=== PATIENT | female | born 1980 | race Caucasian/White ===

== ENCOUNTER 2019-09-07 16:49 | Observation (INO) ==
[2019-09-07 17:48] LABS: BASO# 0.04 X1000 (0.0-0.2); BASO% 0.3 % (0.0-0.8); EOS# 0.25 X1000 (0.0-0.7); EOS% 2.1 % (0.0-10.0); HEMATOCRIT 44.9 % (37.0-47.0); HEMOGLOBIN 15.3 g/dL (12.0-16.0); IMM GRAN# 0.03 X1000 (0.0-0.04); IMM GRAN% 0.3 % (0.0-0.5); LYMPH# 2.92 X1000 (1.2-3.4); LYMPH% 24.7 % (20.5-51.1); MCH 30.9 PG (27-31); MCHC 34.1 g/dL (33-37); MCV 90.7 FL (81-99); MONO# 0.75 X1000 (0.11-0.59); MONO% 6.4 % (1.7-9.3); MPV 9.5 FL (7.4-10.4); NEUT# 7.81 X1000 (1.4-6.5); NEUT% 66.2 % (42.2-75.2); PLT 279 X1000 (130-400); RBC 4.95 XMIL (4.2-5.4); RDW 12.1 % (11.5-14.5)
[2019-09-07 17:53] LABS: INR 0.92; PROTIME 12.5 Seconds (11.0-16.0)
[2019-09-07 17:54] LABS: PTT 30.8 Seconds (22.3-41.8)
[2019-09-07 18:14] LABS: AGAP 19; ALB/GLOB RATIO 1.5; ALBUMIN 4.4 g/dL (3.5-5.0); ALKALINE PHOSPHATASE 78 U/L (32-104); BUN 12 mg/dL (8-22); CALCIUM 9.5 mg/dL (8.8-10.2); CHLORIDE 99 mmol/L (98-107); CK PROFILE 110 U/L (24-173); COSMO 273; CREATININE 0.9 mg/dL (0.5-0.9); ESTIMATED GFR > 60; GLUCOSE 122 mg/dL (70-104); GOT 19 U/L (10-30); GPT 11 U/L (10-36); POTASSIUM 4.1 mmol/L (3.5-5.1); SODIUM 136 mmol/L (136-145); TCO2 18 mmol/L (25-35); TOTAL BILIRUBIN 0.19 mg/dL (0.20-1.00); TOTAL PROTEIN 7.4 g/dL (6.3-8.3)
--- NOTE | 2019-09-07 18:25 | Diag Imaging Result Doc PS360 ---
EXAM: CHEST-1 VIEW INDICATION: possible sepsis TECHNIQUE: One view COMPARISON: 06/29/2016 FINDINGS: The lungs are grossly clear. There is no discrete pleural fluid collection or pneumothorax. The cardiomediastinal silhouette and central vasculature are grossly unremarkable. IMPRESSION: No evidence of acute pathology by plain radiograph. Electronically signed by Efrain Epstein 09/07/2019 6:22 PM
[2019-09-07] MEDS ORDERED: NS 1,000 ML IV ONE (18:48)
[2019-09-07] MEDS ORDERED: ZOFRAN IV ONE (18:48)
[2019-09-07] MEDS ORDERED: DILAUDID IV ONE (18:48)
--- NOTE | 2019-09-07 20:35 | Diag Imaging Result Doc PS360 ---
EXAM: CT ABD/PELVIS W/IV CONT ONLY INDICATION: epigastric/lower abd pain, n/v TECHNIQUE: This exam was performed using automated exposure control, adjustment of mA or kV according to patient size, and/or use of iterative reconstruction technique. COMPARISON: 04/24/2019 FINDINGS: The gallbladder, liver, spleen, pancreas, adrenal glands, kidneys, and urinary bladder are essentially unremarkable. The reproductive tract is grossly unremarkable as imaged. There are surgical kathleen associated with the stomach indicating prior bariatric surgery. There are a few uncomplicated colonic diverticula. The colon is unremarkable, otherwise. There are several loops of small bowel in the lower mid abdomen exhibiting wall thickening indicating nonspecific enteritis. There is no significant bowel distention to indicate high-grade obstruction. Adjacent to the thickened loops of small bowel, there is surgical mesh at the ventral abdominal wall. Just superior to this, there is a ventral wall hernia containing mesenteric fat. This was also seen on the previous study but now there is fluid within the hernial sac and mild opacification of the herniated fat suggesting venous congestion. There is no herniated small bowel. There is no free abdominal gas. There is no evidence of acute osseous abnormality. IMPRESSION: 1.Several loops of small bowel exhibiting wall thickening in the lower mid abdomen indicating nonspecific enteritis. 2.Small ventral abdominal wall hernia containing mesenteric fat like the previous study. However, there is now fluid within the hernial sac and the herniated mesenteric fat is somewhat edematous suggesting venous congestion. Note that there is no small bowel in the hernial sac. Electronically signed by Efrain Epstein 09/07/2019 8:32 PM
--- NOTE | 2019-09-07 21:26 | PROVIDER DOCUMENTATION ---
This chart was entered by Eve Marino Scribe, acting as scribe for Jimmy Sheets CRNP. HPI-Abdominal Pain/GI Problem - General Chief Complaint: Abdominal Pain Stated Complaint: STOMACH PAIN Time Seen by Provider: 09/07/19 18:28 Source: patient Allergies/Adverse Reactions: Patient Allergies Allergy/AdvReac Type Severity Reaction Status Date / Time Penicillins Allergy Intermediate HIVES Verified 07/22/16 14:38 Sulfa (Sulfonamide Allergy RASH Verified 07/22/16 14:38 Antibiotics) Home Medications: Home Medication List Medication Instructions Recorded Confirmed Last Taken Type Citalopram [Celexa] 20 mg PO DAILY 04/24/19 04/24/19 Unknown History Hydrocodone/APAP 5 mg/325 mg 1 ea PO Q6H PRN PRN #10 tab 04/24/19 Unknown Rx [[place]-5] Omeprazole 1 tab PO DAILY 04/24/19 04/24/19 Unknown History Promethazine [Phenergan] 25 mg PO Q6H PRN PRN #10 tab 04/24/19 Unknown Rx - History of Present Illness-ABD Nature of Presenting Problems: Pt is a 39 yof who presents to the ED with a cc upper and lower abd pain. states that the pain began 2 weeks ago but worsened today. reports n/v that began today. reports hx of emergency hernia repair and states that the pain feels similar. pt is tearful in appearance. does not present to the ed with any other complaints. Abdominal Pain Onset Location: reports: other (upper and lower abd) Quality of Pain: reports: aching Severity in ED: reports: moderate Onset/Duration: reports: just prior to arrival (N/V began today), 2 days ago (pain worsened 2 days ago), other (2 weeks ago) Timing: reports: still present Activities at Onset: reports: none Exposure to sick contacts?: No Modifying Factors: improves with: nothing Associated Symptoms: reports: nausea, vomiting Last BM: unsure Dark Stools Present?: reports: none noticed Rectal Bleeding: reports: none Rectal Pain: reports: none Emesis Description: reports: none Bruising or Bleeding Gums?: No Similar Symptoms Previously?: Yes Recently seen or treated by another doctor?: No Review of Systems - Adult - REVIEW OF SYSTEMS - ADULT Constitutional: reports: no symptoms reported Eyes: reports: no symptoms reported Ears, Nose, Mouth & Throat: reports: no symptoms reported Cardiovascular: reports: no symptoms reported Respiratory: reports: no symptoms reported Gastrointestinal: reports: see HPI, abdominal pain (upper and lower- 2 weeks, worsen today), nausea (today), vomiting (today), other (reports hx of hernia repair.) Genitourinary: reports: no symptoms reported Musculoskeletal: reports: no symptoms reported Integumentary: reports: no symptoms reported Neurological: reports: no symptoms reported Psychiatric: reports: no symptoms reported Endocrine: reports: no symptoms reported Hematologic/Lymphatic: reports: no symptoms reported Allergic/Immunologic: reports: no symptoms reported All Other Systems: Reviewed and Negative Past History - Adult - PAST MEDICAL HISTORY-ADULT Review of Records: reports: Old Records Reviewed, Nursing Assessment Review, Medications Reviewed, Social history reviewed & non-contributory. Major Childhood Illnesses: reports: denies history Cardiovascular: reports: denies history Respiratory: reports: sleep apnea Gastrointestinal: reports: denies history Obstetrical/Gynecological: reports: denies history Genitourinary: reports: denies history Musculoskeletal: reports: denies history Neurological: reports: denies history Psychiatric: reports: anxiety Endocrine/Immune: reports: Diabetes Other Conditions: reports: denies history - PRIOR SURGERIES/PROCEDURES Surgical/Procedure History: reports: appendectomy, tonsillectomy, hernia repair, gastric bypass (gastic sleeve ) - IMMUNIZATION STATUS Childhood Immunizations: See Nurse Assessment Flu Vaccine: See Nurse Assessment - FAMILY HISTORY Family History: reviewed, not pertinent - SOCIAL HISTORY Smoking: non-smoker Substance Use: denies Living Situation: family Physical Exam-General - PHYSICAL EXAM-ADULT Initial Vital Signs Reviewed: Yes - CONSTITUTIONAL General Appearance: alert, moderate distress - EYES Eyes: pink conjunctivae - HEAD, EARS, NOSE, MOUTH & THROAT HENMT: normocephalic/atraumatic, moist mucous membranes - NECK Neck: non-tender, full range of motion, normal inspection - RESPIRATORY Respiratory: chest non-tender, lungs clear, normal breath sounds. negative: crackles - CARDIOVASCULAR Cardiovascular: normal peripheral pulses, regular rate, rhythm - GASTROINTESTINAL (ABDOMEN) Abdominal Exam: soft, tenderness (diffused) - MUSCULOSKELETAL Extremity: normal range of motion, normal inspection. negative: deformity, swelling - SKIN Integumentary: normal color, normal turgor, warm/dry. negative: ecchymosis, embolic lesions - NEUROLOGIC Neurologic: grossly normal - PSYCHIATRIC Psych/Mental Status: normal mood/affect, normal thought content, normal thought process, oriented x 3, tearful Progress - PLAN OF CARE/RESULTS Progress/Plan/Lab Results: Vital Signs - 8 hr 09/07/19 17:14 09/07/19 17:51 Temperature 97.6 F Pulse Rate 99 H 104 H Respiratory Rate 22 20 Blood Pressure 141/91 228/144 O2 Sat by Pulse Oximetry 97 100 Bedside Urine ED: Urine Bedside Start: 09/07/19 17:27 Freq: NOW Status: Active Protocol: Activity Type Activity Date Activity User E-Sign Co-Sign Detail Recorded Client Recorded Date Recorded By Document 09/07/19 17:53 [id number] 09/07/19 17:53 [id number] 09/07/19 17:53 Point of Care [Bedside Point of Care] -Lot # [id number] - Results Negative -Control Line Visible? Yes Laboratory Results - last 24 hr 09/07/19 09/07/19 09/07/19 17:29 17:29 17:29 WBC 11.80 H RBC 4.95 Hgb 15.3 Hct 44.9 MCV 90.7 MCH 30.9 MCHC 34.1 RDW Std Deviation 12.1 Plt Count 279 MPV 9.5 Immature Gran % (Auto) 0.3 Neut % (Auto) 66.2 Lymph % (Auto) 24.7 [place] % (Auto) 6.4 Eos % (Auto) 2.1 Baso % (Auto) 0.3 Immature Gran # (Auto) 0.03 Neut # (Auto) 7.81 H Lymph # (Auto) 2.92 [place] # (Auto) 0.75 H Eos # (Auto) 0.25 Baso # (Auto) 0.04 PT INR PTT (Actin FS) Sodium 136 Potassium 4.1 Chloride 99 Carbon Dioxide 18 L Anion Gap 19 BUN 12 Creatinine 0.9 Estimated GFR/1.73 m2 > 60 BUN/Creatinine Ratio 13 Glucose 122 H Calculated Osmolality 273 Calcium 9.5 Total Bilirubin 0.19 L AST 19 ALT 11 Alkaline Phosphatase 78 Creatine Kinase 110 Troponin T High Sens Total Protein 7.4 Albumin 4.4 Globulin 3.0 Albumin/Globulin Ratio 1.5 Plasma Lactate 3.8 H 09/07/19 09/07/19 17:29 17:29 WBC RBC Hgb Hct MCV MCH MCHC RDW Std Deviation Plt Count MPV Immature Gran % (Auto) Neut % (Auto) Lymph % (Auto) [place] % (Auto) Eos % (Auto) Baso % (Auto) Immature Gran # (Auto) Neut # (Auto) Lymph # (Auto) [place] # (Auto) Eos # (Auto) Baso # (Auto) PT 12.5 INR 0.92 PTT (Actin FS) 30.8 Sodium Potassium Chloride Carbon Dioxide Anion Gap BUN Creatinine Estimated GFR/1.73 m2 BUN/Creatinine Ratio Glucose Calculated Osmolality Calcium Total Bilirubin AST ALT Alkaline Phosphatase Creatine Kinase Troponin T High Sens < 6 Total Protein Albumin Globulin Albumin/Globulin Ratio Plasma Lactate Orders Category Date Time Status Cardiac Monitoring DIRECTED Care 09/07/19 17:21 Active IV Insertion ORDERED Care 09/07/19 17:21 Active Notify MD of + Sepsis Screen NOW Care 09/07/19 17:21 Active [ED: Urine Bedside] NOW Care 09/07/19 17:27 Active CHEST-1 VIEW [RAD] Stat Exams 09/07/19 17:[address] ABD/PELVIS W/IV CONT ONLY [CT] Stat Exams 09/07/19 18:47 Ordered BLOOD CULTURE [BLDCUL] Stat Lab 09/07/19 17:21 Uncollected CBC WITH DIFF [HEME] Stat Lab 09/07/19 17:29 Completed CK PROFILE [SP CHEM] Stat Lab 09/07/19 17:29 Completed COMPREHENSIVE METABOLIC PANEL [CHEM] Stat Lab 09/07/19 17:29 Completed LACTATE, PLASMA [CHEM] Q3H Lab 09/07/19 17:29 Completed LACTATE, PLASMA [CHEM] Q3H Lab 09/07/19 20:30 Uncollected LACTATE, PLASMA [CHEM] Q3H Lab 09/07/19 23:30 Uncollected PROTIME WITH INR [COAG] Stat Lab 09/07/19 17:29 Completed PTT [COAG] Stat Lab 09/07/19 17:29 Completed TROPONIN T HIGH SENSITIVITY Stat Lab 09/07/19 17:29 Completed URINALYSIS W/POSS RFLX CULT [URINALYSIS] Stat Lab 09/07/19 17:21 Uncollected 0.9% Sodium Chloride Inj [Ns] 1,000 ml Med 09/07/19 18:48 Active IV 999 mls/hr Hydromorphone [Dilaudid] Med 09/07/19 18:48 Discontinued 1 mg IV NOW ONE Ondansetron [Zofran] Med 09/07/19 18:48 Discontinued 4 mg IV NOW ONE Oxygen Device Stat Oth 09/07/19 17:21 Active Result Diagrams: 09/07/19 17:29 09/07/19 17:29 - REASSESSMENT Reassessment #1 Time Reassessed: 21:25 Status: improving (Pain improved as compared to prior, still present, Dr. Henson recommends admission. Pt admitted to Dr. Mendez in stable condition and is in agreement with plan to admit.) - XRAY 1 XRAY Study: Chest ([facility] - [address] [facility] [facility], [address], [place] [address] [facility] - [address] [place] [address] Department of Imaging Patient: VERONICA QUIÑONES AADM Date: 09/07/19#: [id number] : 1980ADM Status: PRE ERAcct#: [id number] Age/Sex: 39/FRoom/Bed: Loc: ED Ordering Physician: Dale Alaniz MD Health system Physician: Jan Gonzalez MD Reason for Procedure: possible sepsis Signed EXAM: CHEST-1 VIEW INDICATION: possible sepsis TECHNIQUE: One view COMPARISON: 06/29/2016 FINDINGS: The lungs are grossly clear. There is no discrete pleural fluid collection or pneumothorax. The cardiomediastinal silhouette and central vasculature are grossly unremarkable. IMPRESSION: No evidence of acute pathology by plain radiograph. Electronically signed by Efrain Epstein 09/07/2019 6:22 PM 09/07/191821 Interpreting Physician: Efrain Epstein MD Dictated Date/Time: 09/07/191821 cc: Dale Alaniz MD; Jan Gonzalez MD) - CT/MRI 1 CT Study: Abdomen, Pelvis ([facility] - [address] , [address], [place] [address] [facility] - [address] [place] [address] Department of Imaging Patient: VERONICA QUIÑONES Date: 09/07/19MR#: [id number] : 1980ADM Status[facility] [id number] Age/Sex: 39/FRoom/Bed: Loc: ED Ordering Physician: Jimmy Sheets gonzales Physician: Jan Gonzalez MD Reason for Procedure: epigastric/lower abd pain, n/v Signed EXAM: CT ABD/PELVIS W/IV CONT ONLY INDICATION: epigastric/lower abd pain, n/v TECHNIQUE: This exam was performed using automated exposure control, adjustment of mA or kV according to patient size, and/or use of iterative reconstruction technique. COMPARISON: 04/24/2019 FINDINGS: The gallbladder, liver, spleen, pancreas, adrenal glands, kidneys, and urinary bladder are essentially unremarkable. The reproductive tract is grossly unremarkable as imaged. There are surgical kathleen associated with the stomach indicating prior bariatric surgery. There are a few uncomplicated colonic diverticula. The colon is unremarkable, otherwise. There are several loops of small bowel in the lower mid abdomen exhibiting wall thickening indicating nonspecific enteritis. There is no significant bowel distention to indicate high-grade obstruction. Adjacent to the thickened loops of small bowel, there is surgical mesh at the ventral abdominal wall. Just superior to this, there is a ventral wall hernia containing mesenteric fat. This was also seen on the previous study but now there is fluid within the hernial sac and mild opacification of the herniated fat suggesting venous congestion. There is no herniated small bowel. There is no free abdominal gas. There is no evidence of acute osseous abnormality. IMPRESSION: 1.Several loops of small bowel exhibiting wall thickening in the lower mid abdomen indicating nonspecific enteritis. 2.Small ventral abdominal wall hernia containing mesenteric fat like the previous study. However, there is now fluid within the hernial sac and the herniated mesenteric fat is somewhat edematous suggesting venous congestion. Note that there is no small bowel in the hernial sac. Electronically signed by Efrain Epstein 09/07/2019 8:32 PM 09/07/192031 Interpreting Physician: Efrain Epstein MD Dictated Date/Time: 09/07/192024 cc: Jimmy Sheets; Jan Gonzalez MD) - CONSULTS/PCP/HOSPITALIST Notification #1 *Consult/PCP/Hospitalist*: Dr. Mendez Time Discussed: 21:24 Reason/Comments: admission-enteritis, abd pain, vomiting Consult Disposition: Admit Departure - Departure Date of Disposition Decision: 09/07/19 Time of Disposition Decision: 21:25 DIAGNOSIS: Enteritis Abdominal pain Qualifiers: Abdominal location: unspecified location Qualified Code(s): R10.9 - Unspecified abdominal pain Disposition: ADMITTED INPATIENT 09 Certified Medical Emergency: Emergent Condition: Stable Referrals and Follow-Ups: Jan Gonzalez MD [Primary Care Provider] - - Critical Care Note This patient required my direct & personal management of CC.: No Attestation - Physician/ BETHANY Attestation Patient care was provided by Advanced Practice Provider:: Yes Advanced Practice Provider documentation review:: The Mid-level provider documentation, treatment plan and medical decision making was reviewed by the physician who agrees with all treatment and medical decision making by the P. The physician spent face to face time with patient:: No Advanced Practice Provider documentation review:: Supervising physician onsite and consulted in the evaluation and care of this patient. The physician did not have a face to face encounter with the patient. This chart was documented by the indicated scribe, (Eve Marino Scribe) and accurately reflects the services I performed and decisions made by me, Jimmy Sheets CRNP, as attested by the provider's signature.
[2019-09-07] MEDS ORDERED: ZOFRAN IV PRN (23:07)
[2019-09-07] MEDS: NS 1,000 ML IV SCH (23:07)
[2019-09-07] MEDS: DILAUDID IV PRN (23:49)
[2019-09-08] MEDS: DILAUDID IV PRN ×3 (04:15→21:24)
[2019-09-08 05:15] LABS: URINE SOURCE CLEAN CATCH
[2019-09-08 05:24] LABS: BILIRUBIN URINE NEGATIVE (NEGATIVE); BLOOD URINE NEGATIVE (NEGATIVE); COLOR YELLOW; GLUCOSE URINE NEGATIVE (NEGATIVE); KETONE URINE TRACE mg/dL (NEGATIVE); LEUKOCYTES URINE NEGATIVE (NEGATIVE); NITRITE URINE NEGATIVE (NEGATIVE); PH URINE 6.5; PROTEIN URINE TRACE mg/dL (NEGATIVE); TURBIDITY URINE CLEAR (CLEAR); UROBILINOGEN URINE NORMAL (NORMAL)
[2019-09-08 05:26] LABS: UR EPITHELIAL CELLS <10 /HPF (<10); URINE BACTERIA 1+ /HPF; URINE RBC <10 /HPF (<10); URINE WBC <10 /HPF (<10)
[2019-09-08 05:39] LABS: SP GRAVITY URINE 1.015
--- NOTE | 2019-09-08 06:35 | HISTORY AND PHYSICAL ---
PRIMARY CARE PHYSICIAN: Dr. Gonzalez. CHIEF COMPLAINT: Abdominal pain, nausea, vomiting times several days. HISTORY OF PRESENTING ILLNESS: A 39-year-old female with a history of depression, GERD and IBS, who had presented to emergency department with several days history of having abdominal pain. She described it as a cramping sensation and states that she was nauseated and vomited multiple times. She was evaluated in the emergency department and due to her presenting symptoms it was thought that we will place her for observation for further evaluation and management. At the time of my examination, patient denied any headache, fever, chills, chest pain, shortness of breath, hemoptysis or weight changes, but complained of abdominal pain, not feeling well. PAST MEDICAL HISTORY: Includes depression, GERD, IBS. PAST SURGICAL HISTORY: Gastric sleeve, hernia repair, appendectomy, tonsillectomy. ALLERGIES: Penicillin, sulfa. CURRENT MEDICATIONS: 1. Celexa 20 mg p.o. daily. 2. [place] 5 one p.o. q.6 hours. 3. Omeprazole 40 mg p.o. daily. 4. Phenergan 25 mg p.o. q.6 hours. SOCIAL HISTORY: No history of smoking. Admits to social alcohol use. Denies any illicit drug use. FAMILY HISTORY: No history of coronary disease. REVIEW OF SYSTEMS: Fourteen point review of systems is as in HPI. Other systems negative. PHYSICAL EXAMINATION: GENERAL: Cooperative, friendly female. She is resting comfortably now. VITAL SIGNS: Temperature 97.6 degrees, pulse 99 respiration 22, blood pressure 141/91. HEENT: Atraumatic, normocephalic. Extraocular movements intact. PERRLA. NECK: Supple. CHEST: Clear to auscultation. CARDIOVASCULAR: Regular rate and rhythm. ABDOMEN: Soft, mild tenderness. EXTREMITIES: No edema. NEUROLOGIC: She is awake, alert, oriented x3. : No bladder distention. SKIN: Warm. LABORATORIES AND STUDIES: WBC 11.80, hemoglobin 15.3, hematocrit 44.9, platelets 279,000. Sodium 136, potassium 4.1, chloride 99, CO2 is 18, BUN is 12, creatinine 0.9, glucose 122. Abdominal CT scan shows enteritis. ASSESSMENT: A 39-year-old female with a history of depression, GERD, IBS, who had presented to emergency department with several days history of having abdominal pain, nausea, vomiting. She was evaluated in the emergency department and due to her presenting symptoms it was thought that we will place her for observation for further evaluation and management. ASSESSMENT: 1. Abdominal pain with persistent nausea, vomiting. 2. Depression. 3. Gastroesophageal reflux disease. PLAN: 1. We will admit patient to medical floor. 2. We will continue supportive treatment IV fluids, antiemetics, pain control. 3. We will start her home medications once nausea and vomiting subsides. 4. We will continue to follow, reassess, make further recommendation based on patient's clinical course. cc: Aldair Mendez MD
[2019-09-08 07:17] LABS: BASO# 0.02 X1000 (0.0-0.2); BASO% 0.3 % (0.0-0.8); EOS% 2.6 % (0.0-10.0); HEMATOCRIT 37.8 % (37.0-47.0); HEMOGLOBIN 12.4 g/dL (12.0-16.0); LYMPH# 2.98 X1000 (1.2-3.4); LYMPH% 38.5 % (20.5-51.1); MCH 30.5 PG (27-31); MCHC 32.8 g/dL (33-37); MCV 92.9 FL (81-99); MONO% 7.7 % (1.7-9.3); MPV 9.5 FL (7.4-10.4); NEUT# 3.95 X1000 (1.4-6.5); NEUT% 50.9 % (42.2-75.2); PLT 233 X1000 (130-400); RBC 4.07 XMIL (4.2-5.4); WBC 7.75 X1000 (4.8-10.8)
[2019-09-08] MEDS: NS 1,000 ML IV SCH ×2 (07:53→16:44)
[2019-09-08 08:03] LABS: AGAP 12; BUN 10 mg/dL (8-22); CALCIUM 8.1 mg/dL (8.8-10.2); CHLORIDE 104 mmol/L (98-107); COSMO 280; CREATININE 0.8 mg/dL (0.5-0.9); ESTIMATED GFR > 60; GLUCOSE 89 mg/dL (70-104); POTASSIUM 3.6 mmol/L (3.5-5.1); SODIUM 141 mmol/L (136-145); TCO2 25 mmol/L (25-35)
[2019-09-08] MEDS: NORCO-10 PO PRN (13:18)
--- NOTE | 2019-09-08 15:56 | PROGRESS NOTE ---
DATE: 09/08/2019 SUBJECTIVE: I have seen and examined Ms. Obrien today. Ms. Obrien is a 39-year-old female with multiple laparoscopic surgeries due to ventral hernias, comes in this time because of acute onset of abdominal pain. The patient normally sees Dr. Amor. Ms Obrien has also undergone EGD and colonoscopy recently because of suspicion of Irritable bowel syndrome, was found to have H pylori was treated according to her with doxycycline, metronidazole and Pepto- Bismol. Currently, she refers to be feeling a little better. Abdominal pain has improved some. OBJECTIVE: Vital signs: Blood pressure is 130/53, pulse of 74, respirations 16, temperature is 98.4 degrees. General: Ms. Obrien is a 39-year-old morbidly obese, female. BMI is 34.9. She is in bed no distress. HEENT: Mucosa is pink and moist. Anicteric. Acyanotic. Neck: Supple. Chest: Good air entry bilaterally. There was no crepitations no rhonchi. Cardiovascular: Regular rate and rhythm. GI: Abdomen is soft. It is minimally tender in the umbilical area. There is mild induration supraumbilically, but I was not able to feel the hernia defect because of pain. There is also supra and infraumbilical surgical scar. SURFACE HYDROLOGIST: Patient is awake, alert, and oriented. There is no focal deficit. LABORATORY DATA: Has been reviewed. No major abnormality detected. So far blood cultures have been unremarkable. IMAGING STUDIES: A CT scan of the abdomen shows several loops of small bowel exhibiting bowel wall thickening and indicative of nonspecific enteritis. There is also small ventral hernia with some containing mesenteric fat which seems to be somehow edematous. ASSESSMENT: 1. Abdominal pain presumably due to an incarcerated ventral hernia. The patient seems to be feeling a little better now. However, she remains symptomatic. We are going to get surgery to evaluate her. 2. Nonspecific enteritis. The patient is known to have Irritable bowel syndrome. She denies any diarrhea at this point. We will continue to monitor. 3. Recently treated for Helicobacter pylori. Patient stool will be tested for Helicobacter pylori antigen to document cure after the treatment. 4. Morbid obesity. Body mass index of 34.9. 5. Mild lactic acidosis, resolved with fluid resuscitation. PLAN: In general, I think Ms. Obrien is doing a little better. She is still symptomatic with abdominal pain. A CT scan of the abdomen result has been noted. We will get surgery to evaluate her today and hopefully get her discharged in the next 24 to 48 hours if she remains stable. cc: Boaz Ann MD MTDD
--- NOTE | 2019-09-08 21:03 | CONSULTATION ---
DATE OF CONSULTATION: 09/08/2019 HISTORY OF PRESENT ILLNESS: Ms. Melani Obrien is a 39-year-old, overweight, white female with history of gastric sleeve performed in [place]. She has had a periumbilical midline ventral hernia which has been operated on [address] Delvalle performed the first hernia repair, then mesh was removed, and most recently in June 2017 Dr. Amor did an open repair using a round piece of mesh measuring 6 to 8 cm in diameter. She was hospitalized through the emergency department with an incarcerated midline ventral hernia which appeared to be just above the mesh. It contained omentum and no small bowel. She did have the flu last week. PAST MEDICAL HISTORY: 1. Gastroesophageal reflux disease. 2. Depression. 3. Irritable bowel syndrome. PAST SURGICAL HISTORY: 1. Gastric sleeve. 2. Hernia repair several times. 3. Appendectomy. 4. Tonsillectomy. ALLERGIES: Penicillin and sulfa. CURRENT MEDICATIONS: 1. Celexa. 2. [place]. 3. Omeprazole. 4. Phenergan/ SOCIAL HISTORY: She does not smoke. 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 She does use social alcohol. FAMILY HISTORY: Family history was reviewed with the patient, but was noncontributory. REVIEW OF SYSTEMS: A 14-point review of systems was performed and was essentially negative. PHYSICAL EXAMINATION: General: Ms. Obrien is a young, healthy appearing white female, but she is overweight. She is in no acute distress. She has no jaundice. HEENT: No oral lesions. Satisfactory dentition. No cervical or supraclavicular lymphadenopathy. Heart: Has a regular rate. Lungs: Clear to auscultation and percussion bilaterally. Abdomen: Soft. She has a periumbilical incision which is well healed. I could palpate no hernia on the superior aspect of this incision; however, she is tender in that area. Rectal and vaginal: Exams were not performed. Extremities: She does have palpable peripheral pulses. No peripheral edema. Neurological: No focal deficits. I reviewed the CT scan that was performed last night around 8:00. It appeared that she had an incarcerated recurrent ventral hernia above the mesh that contained mesenteric fat and not small bowel. It appears that overnight, the hernia has reduced itself because it is not palpable on exam. She still has some soreness in that area, but clinically she states she feels better. PLAN: We will begin on clear liquids. I will notify Dr. Amor of her admission. Because this recurrent hernia is becoming more symptomatic, repair needs to be considered. cc: India Leyva MD
[2019-09-09] MEDS: DILAUDID IV PRN ×2 (06:17→12:25)
[2019-09-09] MEDS: NORCO-10 PO PRN ×2 (09:39→13:14)
[2019-09-09 11:32] VITALS: BP 121/84
--- NOTE | 2019-09-09 23:32 | DISCHARGE SUMMARY ---
ADMISSION DATE: 09/07/2019 DISCHARGE DATE: 09/09/2019 ADMITTING DIAGNOSIS: Incarcerated recurrent periumbilical hernia. DISCHARGE DIAGNOSIS: Incarcerated recurrent periumbilical hernia. PRINCIPAL PROCEDURES: CT scan of her abdomen and pelvis on 09/07/2019. DISCHARGE DISABILITY: Full. DISCHARGE DISPOSITION: She will return to see Dr. Amor in our outpatient offices within a week. DISCHARGE MEDICATIONS: She is to return to her home medications. HOSPITAL COURSE: Ms. Melani Obrien is a 39-year-old overweight white female who has undergone a gastric sleeve. She has also had a periumbilical recurrent hernia repaired per Dr. Amor. This was an open repair using mesh and she has developed another recurrence superiorly around this other repair. The CT suggested incarcerated omentum within the hernia defect and during her hospitalization this spontaneously reduced and clinically each day she was feeling better. She was still sore on the day of discharge, but there was no palpable ventral hernia. She was tolerating a diet and it was felt safe to discharge her home under the care of her family with followup in our outpatient office with Dr. Amor or myself because of her recurrent now symptomatic periumbilical hernia. She knows to contact us with any increasing abdominal pain, swelling, distention, nausea, or vomiting. cc: India Leyva MD
--- NOTE | 2019-09-10 00:42 | DISCHARGE SUMMARY ---
ADMISSION DATE: 09/07/2019 DISCHARGE DATE: 09/09/2019 DISCHARGE DIAGNOSES: 1. Likely incarcerated recurrent ventral hernia, resolved. 2. Nonspecific enteritis. 3. Recently treated for Helicobacter pylori. 4. Morbid obesity, body mass index 34.9. 5. Mild lactic acidosis, resolved with fluid resuscitation. PROCEDURES PERFORMED: Chest x-ray dated 09/07/2019, impression: No evidence of acute pathology by plain radiograph. Abdomen and pelvis CT scan dated 09/07/2019, impression: Several loops of small bowel exhibiting wall thickening in the lower mid abdomen indicating nonspecific enteritis, a small ventral abdominal wall hernia containing mesenteric fat like the previous study, however, there is now fluid within the hernial sac and the herniated mesenteric fat is somewhat edematous suggesting venous congestion, note that there is no small bowel in the hernial sac. HOSPITAL COURSE: A 39-year-old female with a past medical history of depression, GERD, IBS, presented to the emergency department with several days history of abdominal pain. She described the pain as a cramping sensation and states that she was nauseated and vomiting multiple times, she was evaluated in the emergency department and due to the presenting symptoms it was thought that we will place her for observation for further evaluation and management, at the moment of the admitting doctor evaluation the patient denied headache, fever, chills, chest pain, shortness of breath, hemoptysis, or weight changes but complained of abdominal pain, she was not feeling well. We did an abdominal pelvic CT scan that showed the possibility of nonspecific enteritis, but also showed a small ventral abdominal wall hernia containing mesenteric fat like the previous study. However, there is enough fluid within the hernial sac and the herniated mesenteric fat is somewhat edematous, suggesting venous congestion, noted that there is no small bowel in the hernia sac. Dr. Leyva evaluated this patient and it looks like she had an incarcerated recurrent ventral hernia above the mesh that contained mesenteric fat and no small bowel and it looks like overnight the hernia was reduced itself because it is not palpable on his exam, she still has some soreness in that area but clinically she states that she was feeling better. She was evaluated again by Dr. Leyva today and she has been discharged by Surgery Department, she will follow up with them closely as an outpatient. PHYSICAL EXAMINATION: Temperature 98 degrees, pulse 76, respiratory rate 20, blood pressure 121/84, oxygen saturation 100% on room air. HEENT: Head normocephalic, no trauma. PERRLA. Neck: Is supple. No JVD. No masses. Central trachea. Chest: Clear to auscultation. No wheezing. No rales. Abdomen: Is soft. She has a periumbilical incision which is chronic, she has some soreness to palpation but I cannot palpate hernia in that incision, positive bowel sounds. Extremities: No clubbing, no cyanosis. Neurological: The patient is awake, alert. She is oriented x3. No focal deficits. LABORATORY: Laboratory from yesterday: WBC 7.7, hemoglobin 12.4, hematocrit 37.8, platelets 233,000, sodium 141, potassium 3.6, chloride 104, bicarbonate 25, BUN 10, creatinine 0.8, glucose 189, calcium 8.1. DISCHARGE MEDICATIONS: 1. Zyrtec 10 mg p.o. q.a.m. 2. Celexa 20 mg p.o. daily. 3. Bentyl 10 mg p.o. a.c. and at bedtime. 4. [place] 10 p.o. q. 6 hours as needed for pain. 5. Ativan 1 mg p.o. q. 6 hours as needed. 6. Omeprazole 1 tablet p.o. a.c.b. 7. Phenergan 25 mg p.o. q. 6 hours as needed for nausea and vomiting. 8. Follow up with Surgery Department. She will need to call for an appointment. She has an appointment to see Dr. Amor on 09/19/2019 at 10:45 a.m. cc: Andi Fu MD
== END 2019-09-09 13:19 | disposition home or self-care (01) ==
LOC: ED 16:49 → EDIPHOLD 16:49 → SUATTDRO 16:50 → 4N 23:50
PROVIDERS: ATTEND Internal Medicine